=== PATIENT | female | born 1975 | race Two or more races ===

== ENCOUNTER → 2024-04-16 | Outpatient (CLI) | payer BC, SELFPAY ==
[2024-04-16 10:33] LABS: Basophils % (Auto) 1 % (0-2.5); Eosinophils # (Auto) 0.1 Thou/mm3 (0.0-0.5); Eosinophils % (Auto) 1 % (0-10); Hematocrit 37.6 % (36.0-46.0); Hemoglobin 12.5 g/dL (12.0-16.0); Immature Granulocytes % (Auto) 0 % (0-0); Immature Granulocytes Auto 0.01 Thou/mm3 (0.00-0.00); Lymphocytes # (Auto) 2.2 Thou/mm3 (1.0-4.8); Lymphocytes % (Auto) 33 % (10-50); Mean Corpuscular HGB Conc 33.2 g/dl (31.0-37.0); Mean Corpuscular Hemoglobin 30.8 pg (25.0-35.0); Mean Corpuscular Volume 93 fL (80-100); Monocytes # (Auto) 0.5 Thou/mm3 (0.0-0.8); Monocytes % (Auto) 7 % (0-12); Neutrophils # (Auto) 3.9 Thou/mm3 (1.8-7.7); Neutrophils % (Auto) 58 % (37-80); Nucleated Red Blood Cell % 0 /100 WBC (0); Platelet Count 378 Thou/mm3 (140-440); RDW Standard Deviation 41.6 fL (36.4-46.3); Red Blood Count 4.06 Miln/mm3 (4.00-5.20); White Blood Count 6.6 Thou/mm3 (3.6-11.0)
[2024-04-16 10:50] LABS: Alanine Aminotransferase 22 U/L (10-49); Albumin, Serum 4.6 gm/dL (3.5-5.0); Alkaline Phosphatase 131 U/L (46-116); Anion Gap 8 (7-16); Aspartate Amino Transferase 27 U/L (0-34); BUN/Creatinine Ratio 14 Ratio (12-20); Bilirubin,Direct 0.2 mg/dL (0.0-0.3); Bilirubin,Total 0.6 mg/dL (0.3-1.2); Blood Urea Nitrogen 14 mg/dL (9-23); Calcium 9.8 mg/dL (8.3-10.6); Carbon Dioxide 26.7 mMol/L (20.0-31.0); Chloride 104 mMol/L (98-107); Cholesterol 161 mg/dL (132-200); Free T4 (Free Thyroxine) 0.77 ng/dL (0.89-1.76); Glucose 98 mg/dL (74-106); HDL Cholesterol 53 mg/dL (40-60); LDL Cholesterol,Calculated 82 mg/dL (0-130); Osmolality,Calculated 278 (275-295); Potassium 4.4 mMol/L (3.4-5.1); Sodium 139 mMol/L (136-145); Thyroid Stimulating Hormone 3.42 uIU/mL (0.55-4.78); Triglycerides 131 mg/dL (30-150); eGFR > 60 See Note
== END | disposition home or self-care (01) ==
LOC: COPL 09:17
PROVIDERS: PCP Internal Medicine; Referring Provider Internal Medicine Cardiovascular Disease; Visit Provider Internal Medicine Cardiovascular Disease
DX: I20.9 Angina pectoris, unspecified (principal); I10 Essential (primary) hypertension
CPT/HCPCS: 36415; 80048; 80061; 80076; 84439; 84443; 85025

== ENCOUNTER → 2024-09-17 | Outpatient (CLI) | payer BC, SELFPAY ==
[2024-09-17 12:30] LABS: Thyroid Stimulating Hormone 3.79 uIU/mL (0.55-4.78)
[2024-09-17 12:49] LABS: Syphilis Nonreactive (Nonreactive)
[2024-09-17 13:11] LABS: Hepatitis B Surface Antigen Non Reactive (Non React); Hepatitis C Antibody Non Reactive (Non React)
[2024-09-21 06:58] LABS: HIV Ag/Ab, 4th Gen NON-REACTIVE; HSV2 IgG Type Specific Ab <0.90 INDEX
== END | disposition home or self-care (01) ==
LOC: COPL 10:43
PROVIDERS: PCP Internal Medicine; Referring Provider Internal Medicine; Visit Provider Obstetrics & Gynecology
DX: N93.9 Abnormal uterine and vaginal bleeding, unspecified (principal); Z11.3 Encounter for screening for infections with a predominantly sexual mode of transmission
CPT/HCPCS: 36415; 84439; 84443; 86695; 86696; 86780; 86803; 87340; 87389

== ENCOUNTER → 2024-12-26 | Outpatient (CLI) | payer BC, SELFPAY ==
[2024-12-26 09:55] LABS: Misc Send Out* See Sep Rpt
[2024-12-26 10:49] LABS: Basophils # (Auto) 0.1 Thou/mm3 (0.0-0.2); Basophils % (Auto) 1 % (0-2.5); Eosinophils # (Auto) 0.1 Thou/mm3 (0.0-0.5); Eosinophils % (Auto) 1 % (0-10); Hematocrit 36.0 % (36.0-46.0); Hemoglobin 11.6 g/dL (12.0-16.0); Immature Granulocytes Auto 0.02 Thou/mm3 (0.00-0.00); Lymphocytes # (Auto) 2.5 Thou/mm3 (1.0-4.8); Lymphocytes % (Auto) 39 % (10-50); Mean Corpuscular HGB Conc 32.2 g/dl (31.0-37.0); Mean Corpuscular Hemoglobin 28.6 pg (25.0-35.0); Mean Corpuscular Volume 89 fL (80-100); Monocytes # (Auto) 0.4 Thou/mm3 (0.0-0.8); Monocytes % (Auto) 6 % (0-12); Neutrophils # (Auto) 3.4 Thou/mm3 (1.8-7.7); Neutrophils % (Auto) 53 % (37-80); Nucleated Red Blood Cell # 0.00 Thou/mm3 (0.00-0.00); Nucleated Red Blood Cell % 0 /100 WBC (0); Platelet Count 391 Thou/mm3 (140-440); RDW Standard Deviation 45.1 fL (36.4-46.3); Red Blood Count 4.06 Miln/mm3 (4.00-5.20); White Blood Count 6.5 Thou/mm3 (3.6-11.0)
[2024-12-26 10:52] LABS: INR 1.0 (0.9-1.3); Prothrombin Time 10.6 Seconds (9.0-12.2)
[2024-12-26 10:58] LABS: Glucose Estimated Average 108 mg/dL (80-131); Hemoglobin A1C 5.4 % Hgb (4.8-6.0)
[2024-12-26 11:01] LABS: Alanine Aminotransferase 16 U/L (10-49); Albumin, Serum 4.3 gm/dL (3.5-5.0); Albumin/Globulin Ratio 1.7 (1.2-2.2); Alkaline Phosphatase 120 U/L (46-116); Anion Gap 9 (7-16); Aspartate Amino Transferase 22 U/L (0-34); BUN/Creatinine Ratio 19 Ratio (12-20); Bilirubin,Total 0.6 mg/dL (0.3-1.2); Blood Urea Nitrogen 15 mg/dL (9-23); Calcium 9.5 mg/dL (8.3-10.6); Calcium (Corrected) 9.5 mg/dL (8.5-10.1); Carbon Dioxide 28.2 mMol/L (20.0-31.0); Cardiac Risk Estimate 2.7 RATIO (3.7-5.6); Chloride 106 mMol/L (98-107); Cholesterol 147 mg/dL (132-200); Creatinine (Component) 0.8 mg/dL (0.6-1.3); Globulin 2.6 gm/dL (2.3-3.5); Glucose 82 mg/dL (74-106); HDL Cholesterol 55 mg/dL (40-60); LDL Cholesterol,Calculated 75 mg/dL (0-130); Osmolality,Calculated 284 (275-295); Potassium 4.1 mMol/L (3.4-5.1); Sodium 143 mMol/L (136-145); Total Protein 6.9 gm/dL (5.7-8.2); Triglycerides 87 mg/dL (30-150); eGFR > 60 See Note
[2024-12-26 11:08] LABS: Ferritin 10 ng/mL (7.3-270.7); Iron 112 mcg/dL (50-170); Percent Iron Saturation 26 % (20-55); Total Iron Binding Capacity 425 mcg/dL (250-425); Unsaturated Iron Binding 313 (225-295)
[2024-12-26 11:51] LABS: AFP Non-Pregnant 4.30 ng/mL (<8.10); Hepatitis B Surface Ab Reactive (Immune) (Immune); Hepatitis B Surface Antigen Non Reactive (Non React)
[2025-01-01 13:48] LABS: HCV RNA, PCR <15 NOT DETECTED IU/mL; Sm Antibody <1.0 NEG AI (<1.0 NEGATIVE)
[2025-01-02 06:34] LABS: ANA Screen, IFA NEGATIVE (NEGATIVE); Alpha-1-Antitrypsin* 133 mg/dL (83-199); Ceruloplasmin* 28 mg/dL (14-48); HCV RNA, PCR Log IU <1.18 NOT DETECTED Log IU/mL; Hepatitis A Antibody, Total* NONREACTIVE; Hepatitis B Core Ab,Total* NONREACTIVE; IgG, Serum* 1231 mg/dL (600-1640); Mitochondrial Ab NEGATIVE (NEGATIVE); Sm/RNP Antibody <1.0 NEG AI (<1.0 NEGATIVE)
== END | disposition home or self-care (01) ==
PROVIDERS: PCP Internal Medicine; Referring Provider Internal Medicine; Visit Provider Internal Medicine
DX: K75.81 Nonalcoholic steatohepatitis (NASH) (principal); K74.02 Hepatic fibrosis, advanced fibrosis
CPT/HCPCS: 36415; 80053; 80061; 82103; 82105; 82390; 82728; 82784; 83036; 83540; 83550; 85025; 85610; 86038; 86235; 86255; 86704; 86706; 86708; 87340; 87522

== ENCOUNTER 2024-12-27 07:48 | Emergency (ER) | payer BC, SELFPAY ==
[2024-12-27 07:52] VITALS: BP 102/65; PULSE 72; RESP 15; TEMP 36.4; O2SAT 98
[2024-12-27 07:53] VITALS: PULSE 68; RESP 14; O2SAT 93
[2024-12-27 07:55] VITALS: PULSE 71; O2SAT 99
--- NOTE | 2024-12-27 07:55 | EKG_ITS ---
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
--- NOTE | 2024-12-27 07:57 | EKG_ITS ---
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
[2024-12-27 07:58] VITALS: BMI 29.9
[2024-12-27] MEDS: SODIUM CHLORIDE 0.9% 500 ML 500 ML 999 ML IV (08:13)
[2024-12-27 09:06] LABS: Basophils # (Auto) 0.0 Thou/mm3 (0.0-0.2); Basophils % (Auto) 0 % (0-2.5); Eosinophils # (Auto) 0.0 Thou/mm3 (0.0-0.5); Eosinophils % (Auto) 1 % (0-10); Hematocrit 36.3 % (36.0-46.0); Hemoglobin 11.8 g/dL (12.0-16.0); Immature Granulocytes Auto 0.01 Thou/mm3 (0.00-0.00); Lymphocytes # (Auto) 1.9 Thou/mm3 (1.0-4.8); Lymphocytes % (Auto) 30 % (10-50); Mean Corpuscular HGB Conc 32.5 g/dl (31.0-37.0); Mean Corpuscular Hemoglobin 28.3 pg (25.0-35.0); Mean Corpuscular Volume 87 fL (80-100); Monocytes # (Auto) 0.3 Thou/mm3 (0.0-0.8); Monocytes % (Auto) 4 % (0-12); Neutrophils # (Auto) 4.1 Thou/mm3 (1.8-7.7); Neutrophils % (Auto) 65 % (37-80); Nucleated Red Blood Cell # 0.00 Thou/mm3 (0.00-0.00); Nucleated Red Blood Cell % 0 /100 WBC (0); Platelet Count 333 Thou/mm3 (140-440); RDW Standard Deviation 44.1 fL (36.4-46.3); Red Blood Count 4.17 Miln/mm3 (4.00-5.20); White Blood Count 6.4 Thou/mm3 (3.6-11.0)
[2024-12-27 09:19] LABS: INR 1.0 (0.9-1.3); Prothrombin Time 11.0 Seconds (9.0-12.2)
[2024-12-27 09:22] LABS: HCG,Qualitative Serum Negative
[2024-12-27 09:27] LABS: Alanine Aminotransferase 14 U/L (10-49); Albumin, Serum 3.8 gm/dL (3.5-5.0); Albumin/Globulin Ratio 1.6 (1.2-2.2); Alkaline Phosphatase 108 U/L (46-116); Anion Gap 10 (7-16); Aspartate Amino Transferase 22 U/L (0-34); BUN/Creatinine Ratio 18 Ratio (12-20); Bilirubin,Total 0.6 mg/dL (0.3-1.2); Blood Urea Nitrogen 14 mg/dL (9-23); Calcium 9.2 mg/dL (8.3-10.6); Calcium (Corrected) 9.4 mg/dL (8.5-10.1); Carbon Dioxide 25.9 mMol/L (20.0-31.0); Chloride 107 mMol/L (98-107); Creatinine (Component) 0.8 mg/dL (0.6-1.3); Estimated Creatinine Clearance 109.4 mL/min (>60); Globulin 2.4 gm/dL (2.3-3.5); Glucose 107 mg/dL (74-106); Osmolality,Calculated 285 (275-295); Potassium 3.7 mMol/L (3.4-5.1); Sodium 143 mMol/L (136-145); Total Protein 6.2 gm/dL (5.7-8.2); Troponin I < 0.002 ng/mL (0.0-0.045); eGFR > 60 See Note
--- NOTE | 2024-12-27 09:56 | PD.EDSYNC ---
ED Syncope RME/HPI General Chief Complaint: Syncope / Near Syncope Stated Complaint: POSSIBLE SYNCOPAL EPISODE AFTER MRI CONTRAST Time Seen by Provider: 12/27/24 07:54 Source: patient Arrival date/time: 12/27/24 07:48 Mode of arrival: wheelchair Limitations: no limitations RME / HPI RME / HPI narrative: Patient is a 49-year-old female who was in MRI for a abdominal study as an outpatient. She received an IV push of contrast and had a reaction where she felt flushed and passed out. She did not have any rash. There was no swelling of her tongue. No other complaints. MD complaint: felt faint Onset (ago): minute(s) Duration of episode: 2 -: minutes(s) Description of event: post-event confusion and other (Passed out after feeling flushed and warm. Patient when she woke up felt confused momentarily. She when allergies because of the tachycardia or dizziness Respiratory functions got lung cancer anything like getting chemo but does not have a fever he is already snoring and mass so I think okay) Prodromal symptoms: none Witnessed: yes - by bystander Context: at rest Injuries sustained associated with event: none Current symptoms: weakness Treatments prior to arrival: none Related Data Allergies Allergy/AdvReac Type Severity Reaction Status Date / Time Dye contrast Allergy Uncoded 12/27/24 08:41 Review of Systems Review of Systems Systems Reviewed: All systems reviewed, normal except as documented Past Medical History Social History SMOKING STATUS: Never smoker ED Exam General Limitations: Present no limitations General appearance: Present alert and in no apparent distress Head Head exam: Present atraumatic Eye Eye exam: Present normal appearance, PERRL and EOMI ENT ENT exam: Present normal exam, normal oropharynx and mucous membranes moist Neck Neck exam: Present normal inspection, full ROM and trachea midline Chest Chest inspection: Present normal inspection and symmetric chest wall rise Respiratory Respiratory exam: Present normal lung sounds bilaterally Cardiovascular Cardiovascular exam: Present regular rate, normal rhythm and normal heart sounds Abdominal Exam Abdominal exam: Present soft and normal bowel sounds Extremities Exam Extremities exam: Present normal inspection and full ROM Back Exam Back exam: Present normal inspection and full ROM Neurological Exam Neurological exam: Present alert, oriented X3 and CN II-XII intact Psychiatric Psychiatric exam: Present normal affect and normal mood Skin Skin exam: Present warm, dry, intact and normal color Course Quality Measures none Orders Category Date Time Status Director Of Direct Marketing STAT Care 12/27/24 07:55 Active EKG (ED ONLY) *Do not use* NOW Care 12/27/24 07:55 Completed Insert IV STAT Care 12/27/24 07:55 Active EKG (ED Only) Stat Exams 12/27/24 07:55 Ordered EKG (ED Only) Stat Exams 12/27/24 07:57 Draft CBC Stat Lab 12/27/24 08:55 Completed Comprehensive Metabolic Panel Stat Lab 12/27/24 08:55 Completed HCG,Qualitative Serum Stat Lab 12/27/24 08:55 Completed Prothrombin Time with INR Stat Lab 12/27/24 08:55 Completed Troponin I Stat Lab 12/27/24 08:55 Completed Sodium Chloride 0.9% 500 ml [Ns] 500 ml Med 12/27/24 07:55 Discontinued IV 999 mls/hr Oxygen Delivery STAT RT 12/27/24 07:55 Active Vital Signs Vital signs: Vital Signs Temperature 97.6 F 12/27/24 07:52 Pulse Rate 72 12/27/24 07:52 Respiratory Rate 15 12/27/24 07:52 Blood Pressure 102/65 12/27/24 07:52 Pulse Oximetry (%) 98 12/27/24 07:52 Oxygen Delivery Method Room Air 12/27/24 07:52 Pulse ox is 98% on room air which is adequate. Syncope Patient data External records reviewed:: [facility] previous records (I reviewed ED visit on 11/17/2021 ) Clinical information provided by:: patient Social determinants that could affect healthcare access:: none Patient has the following chronic illnesses:: None How is presenting disease/condition affected by chronic disease/condition?: no chronic disease Evaluation data The following diagnostics were reviewed and interpreted by me:: lab results and EKG tracing(s) Lab and/or radiology exams considered but not ordered:: None Interpretation Summary: EKG @ 07:57 AM. Sinus rhythm, rate 70, no acute ischemic changes, no STEMI Medications / Prescriptions Medications or Prescriptions considered but not ordered:: None Medication administrations:: Medication Administration History Discontinued Medications Sodium Chloride (Ns) 500 mls @ 999 mls/hr IV .Q31M ONE Stop: 12/27/24 08:25 Last Infusion: 12/27/24 09:56 Dose: Infused Documented By: Admin: 12/27/24 08:13 Dose: 999 mls/hr Documented By: PATRICIA See above Consultations Consultation(s) initiated? (list below): No Diagnosis Syncope Differential Diagnosis: syncope due to orthostatic hypotension, vasovagal syncope and dehydration Most likely diagnosis given after review of the tests above:: Vasovagal syncope Admission Indicated Admission indicated?: not indicated Admission Request Was there a request for admission?: No Disposition Plan Disposition Plan: Discharge Discharge Attestation Discharge Attestation: The patient and all family members were given an opportunity to ask questions and understood the discharge instructions. Discharge instructions specifically effects, indications for sooner follow up or return to the emergency department, and the expected course of current diagnosis. Patient condition: Stable Discharge Plan Plan Patient Disposition: HOME (Self Care) Patient condition on transfer: Stable Prescriptions/Referrals Referrals: No Primary/Family,Physician [Primary Care Provider] - In 1 week Problem List Clinical Impression: Vasovagal syncope Patient/Caregiver Discharge Instructions Discharge Activity: activity as tolerated Education Materials: Treatment for Vasovagal Syncope, Understanding Vasovagal Syncope Additional Instructions: Drink plenty of fluids and rest today. Off work today and tomorrow. Follow-up with your doctor as scheduled. Print Language: Croatian Stand Alone Forms: Hilary Award Info., Patient Portal Info Letter
== END 2024-12-27 12:12 | disposition home or self-care (01) ==
PROVIDERS: Emergency Provider Family Medicine
DX: R55 Syncope and collapse (principal)
CPT/HCPCS: 36415; 80053; 84484; 84703; 85025; 85610; 93005; 96360; 96361; 99284; J7999

== ENCOUNTER → 2024-12-27 | Outpatient (CLI) | payer BC, SELFPAY ==
[2024-12-26 12:32] LABS: HCG Qualitative,Urine Negative
--- NOTE | 2024-12-27 07:00 | XR_ITS ---
Examination: MRI abdomen with intravenous contrast. MRI abdomen without intravenous contrast. Date and time of exam: December 27, 2024 0657 hours INDICATIONS: Clinical diagnosis advanced hepatic fibrosis, fatty liver, diagnosis not optimally liver cirrhosis Technique: Multiple axial, sagittal and coronal sections of the abdomen obtained. Transverse images, TR 6020, TE 107. T1 weighted transverse images, TR 582, TE 9.5. T2-weighted sagittal images, TR 4000, TE 105. T2-weighted sagittal images, TR 4000, TE 5. Coronal images, TR 4210, TE 107. Axial and coronal images are obtained post 19 cc intravenous injection, gadolinium. Findings: Minimal irregular liver contour, no focal liver lesions No intrahepatic biliary tract dilatation Absent gallbladder Common hepatic duct 8 mm no stones No pancreatic mass or peripancreatic edema Spleen is not enlarged No hydronephrosis No ascites Postcontrast images demonstrate no abnormal enhancing liver or splenic lesion Anterior 4.6 cm renal cyst IMPRESSION: Primary hepatocellular disease No intrahepatic biliary tract dilatation No focal abnormal enhancing liver lesions No common hepatic or common bile duct stones
== END | disposition home or self-care (01) ==
LOC: SMRI 06:37
PROVIDERS: PCP Internal Medicine; Referring Provider Internal Medicine; Visit Provider Internal Medicine
DX: K76.9 Liver disease, unspecified (principal); Z32.00 Encounter for pregnancy test, result unknown
CPT/HCPCS: 74183; 81025; A9577

== ENCOUNTER → 2025-03-14 | Outpatient (CLI) | payer BC, SELFPAY ==
[2025-03-14 13:56] LABS: Basophils # (Auto) 0.0 Thou/mm3 (0.0-0.2); Basophils % (Auto) 1 % (0-2.5); Eosinophils # (Auto) 0.1 Thou/mm3 (0.0-0.5); Eosinophils % (Auto) 2 % (0-10); Hematocrit 35.7 % (36.0-46.0); Hemoglobin 11.4 g/dL (12.0-16.0); Immature Granulocytes Auto 0.01 Thou/mm3 (0.00-0.00); Lymphocytes # (Auto) 2.8 Thou/mm3 (1.0-4.8); Lymphocytes % (Auto) 35 % (10-50); Mean Corpuscular HGB Conc 31.9 g/dl (31.0-37.0); Mean Corpuscular Hemoglobin 29.2 pg (25.0-35.0); Mean Corpuscular Volume 92 fL (80-100); Monocytes # (Auto) 0.7 Thou/mm3 (0.0-0.8); Monocytes % (Auto) 8 % (0-12); Neutrophils # (Auto) 4.3 Thou/mm3 (1.8-7.7); Neutrophils % (Auto) 54 % (37-80); Nucleated Red Blood Cell # 0.00 Thou/mm3 (0.00-0.00); Nucleated Red Blood Cell % 0 /100 WBC (0); Platelet Count 340 Thou/mm3 (140-440); RDW Standard Deviation 48.4 fL (36.4-46.3); Red Blood Count 3.90 Miln/mm3 (4.00-5.20); White Blood Count 8.0 Thou/mm3 (3.6-11.0)
[2025-03-14 14:02] LABS: Anion Gap 7 (7-16); BUN/Creatinine Ratio 15 Ratio (12-20); Blood Urea Nitrogen 12 mg/dL (9-23); Calcium 9.1 mg/dL (8.3-10.6); Carbon Dioxide 28.7 mMol/L (20.0-31.0); Chloride 109 mMol/L (98-107); Creatinine (Component) 0.8 mg/dL (0.6-1.3); Glucose 88 mg/dL (74-106); Osmolality,Calculated 287 (275-295); Potassium 4.2 mMol/L (3.4-5.1); Sodium 145 mMol/L (136-145); eGFR > 60 See Note
[2025-03-14 14:08] LABS: HCG,Qualitative Serum Negative
== END | disposition home or self-care (01) ==
LOC: COPL 13:13
PROVIDERS: PCP Internal Medicine; Referring Provider Obstetrics & Gynecology; Visit Provider Obstetrics & Gynecology
DX: Z01.818 Encounter for other preprocedural examination (principal); N92.1 Excessive and frequent menstruation with irregular cycle
CPT/HCPCS: 36415; 80048; 84703; 85025